=== PATIENT | male | born 1995 | race Caucasian/White ===

== ENCOUNTER 2018-04-10 10:56 | Emergency (ER) | payer SELFPAY ==
[2018-04-10 10:59] VITALS: BP 147/98; PULSE 95; TEMP 98; BMI 28.0
--- NOTE | 2018-04-10 12:02 | PDOC ---
History of Present Illness - General Chief Complaint: Ear Problem Stated Complaint: MIGUEL EAR PAIN Time Seen by Provider: 04/10/18 11:36 History Source: Patient Exam Limitations: Clinical Condition - History of Present Illness Initial Comments: 04/10/18 12:19 Patient with no significant past medical history present with complaint of three -day history of bilaterally ear pain, nasal congestion, headache and bleeding from left ear yesterday. Patient denies fever, chills, nausea or vomiting. Patient denies any other symptoms Timing/Duration: other (2 days) Past History - Past Medical History Allergies/Adverse Reactions: Allergies Allergy/AdvReac Type Severity Reaction Status Date / Time No Known Allergies Allergy Verified 04/10/18 10:59 Home Medications: Ambulatory Orders Amox-Tr/K Cl [Augmentin - 875Mg Tablet] 1 tab PO BID #14 tablet 04/10/18 Methylprednisolone [Medrol Dose Juan M] 4 mg PO ASDIR #21 tablet 04/10/18 Neomycin/Polymyxin B/Hydrocort [Nbhpdaav-Sajkgwhqu-Nn Ear Susp] 2 drop OT Q6H 5 Days #1 bottle 04/10/18 COPD: No - Suicide/Smoking/Psychosocial Hx Smoking History: Never smoked Review of Systems - Review of Systems Able to Perform ROS?: Yes Is the patient limited [place] proficient: No Constitutional: No: Chills, Fever, Malaise, Weakness HEENTM: Yes: Symptoms Reported, See HPI, Ear Pain (b/l ears), Ear Discharge ( left ear), Nose Congestion. No: Eye Pain, Blurred Vision, Tearing, Recent change in vision, Double Vision, Cataracts, Ocular Prothesis, Nose Pain, Tinnitus, Nose Bleeding, Hearing Loss, Throat Pain, Throat Swelling, Mouth Pain , Dental Problems, Difficulty Swallowing, Mouth Swelling, Other Respiratory: No: Symptoms reported, See HPI, Cough, Orthopnea, Shortness of Breath, SOB with Exertion, SOB at Rest, Stridor, Wheezing, Productive cough, Hemoptysis, Other Cardiac (ROS): No: Symptoms Reported, See HPI, Chest Pain, Edema, Irregular Heart Rate, Lightheadedness, Palpitations, Syncope, Chest Tightness, Other ABD/GI: No: Symptoms Reported, See HPI, Abdominal Distended, Abd. Pain w/ defecation, Blood Streaked Bowels, Constipated, Diarrhea, Difficulty Swallowing , Nausea, Poor Appetite, Poor Fluid Intake, Rectal Bleeding, Vomiting, Indigestion, Abdominal cramping, Tarry Stools, Other Neurological: Yes: See HPI, Headache. No: Numbness, Paresthesia, Tremors, Ataxia, Dizziness All Other Systems: Reviewed and Negative *Physical Exam - Vital Signs Last Vital Signs Temp Pulse Resp BP Pulse Ox 98.0 F 95 H 18 147/98 98 04/10/18 10:57 04/10/18 10:57 04/10/18 10:57 04/10/18 10:57 04/10/18 10:57 - Physical Exam Comments: 04/10/18 12:20 GENERAL: Well developed, well nourished. Awake and alert. No acute distress. HEENT: Mild erythematous bilateral external ear canal with bulging tympanic membrane of left ear canal. Mild clear fluid in bilateral ear canal. No blood in the ear canal. Normocephalic, atraumatic. PERRLA, EOMI. No conjunctival pallor. Sclera are non-icteric. Moist mucous membranes. Oropharynx is clear. NECK: Supple. Full ROM. CARDIOVASCULAR: Regular rate and rhythm. No murmurs, rubs, or gallops. Distal pulses are 2+ and symmetric. PULMONARY: No evidence of respiratory distress. Lungs clear to auscultation bilaterally. No wheezing, rales or rhonchi. ABDOMINAL: Soft. Non-tender. Non-distended. No rebound or guarding. No organomegaly. Normoactive bowel sounds. MUSCULOSKELETAL Normal range of motion at all joints. SKIN: Warm and dry. Normal capillary refill. No rashes. No jaundice. NEUROLOGICAL: Alert, awake, appropriate. Gait is normal without ataxia. PSYCHIATRIC: Cooperative. Good eye contact. Appropriate mood General Appearance: Yes: Nourished, Appropriately Dressed. No: Apparent Distress Moderate Sedation - Procedure Monitoring Vital Signs: Procedure Monitoring Vital Signs Temperature 98.0 F 04/10/18 10:57 Pulse Rate 95 H 04/10/18 10:57 Respiratory Rate 18 04/10/18 10:57 Blood Pressure 147/98 04/10/18 10:57 O2 Sat by Pulse Oximetry (%) 98 04/10/18 10:57 Medical Decision Making - Medical Decision Making 04/10/18 12:21 Patient presented with complaint of three-day history of nasal congestion and bilateral ear pain and pressure with discharge from left ear canal. Symptoms likely sinusitis with otalgia versus otitis externa bilateral versus otitis media. Exam significant for mild bilateral erythema in the ear canals. Patient is stable for treatment for sinusitis and bilateral otitis externa with ENT follow-up. Augmentin 875 mg twice a day for one week. Medrol Juan M for 5 days and neomycin with polymycin ear drops prescribed. *DC/Admit/Observation/Transfer Diagnosis at time of Disposition: Sinusitis Qualifiers: Sinusitis location: frontal Chronicity: acute Recurrence: non-recurrent Qualified Code(s): J01.10 - Acute frontal sinusitis, unspecified Otitis externa Qualifiers: Otitis externa type: unspecified type Chronicity: acute Laterality: bilateral Qualified Code(s): H60.503 - Unspecified acute noninfective otitis externa, bilateral - Discharge Dispostion Disposition: HOME Condition at time of disposition: Stable Decision to Admit order: No - Prescriptions Prescriptions: Amox-Tr/K Cl [Augmentin - 875Mg Tablet] 1 tab PO BID #14 tablet Methylprednisolone [Medrol Dose Juan M] 4 mg PO ASDIR #21 tablet Neomycin/Polymyxin B/Hydrocort [Yprzplpg-Jviuzkwwe-As Ear Susp] 2 drop OT Q6H 5 Days #1 bottle - Referrals Referrals: Addy Collado MD [Staff Physician] - - Patient Instructions Printed Discharge Instructions: DI for Sinusitis Additional Instructions: Take medications as prescribed. increase fluid intake. Follow-up with referred ENT if symptoms does not improve in 4 days - Post Discharge Activity Forms/Work/School Notes: Back to Work
== END 2018-04-10 12:04 | disposition home or self-care (01) ==
LOC: JERFT 10:56
DX: H60.503 Unspecified acute noninfective otitis externa, bilateral (principal); J01.10 Acute frontal sinusitis, unspecified
CPT/HCPCS: 99281-25